=== PATIENT | female | born 1970 | race Caucasian/White ===

== ENCOUNTER 2016-08-14 21:35 | Emergency (ER) | payer OTHER ==
[~2016-08-14] VITALS: Ht 162.6 cm; Wt 64.7 kg
[~2016-08-14 21:35] MED LIST: ATV5 PO; FLUT0.0529; PRENTAB26 PO; TRAZ-120 PO
[2016-08-14 21:36] VITALS: TEMP 36.7; Ht 162.6 cm; Wt 64.7 kg
[2016-08-14] MEDS ORDERED: OMEP20CA9 PO (21:57)
[2016-08-14] MEDS ORDERED: OXYC-57 PO (22:37)
[2016-08-14] MEDS ORDERED: PERCOCET HOME PACK PO ONE (22:45)
[2016-08-14 22:53] VITALS: BP 105/84; PULSE 71; O2SAT 96
--- NOTE | 2016-08-15 03:51 | EMERGENCY ROOM VISIT NOTE ---
ED Visit Note First contact with patient: 22:04 Chief Complaint: Low back pain. History of Present Illness: Ms. Swenson is a 46-year-old white female who ambulates into the ED accompanied by her complaining of right lower back pain. Historically patient reports she has a history of bulging disks at the L4-L5 area with lumbar radiculopathy. Patient reports approximately 4 hours ago she developed an acute onset of right- sided lumbar back pain. Since that time her pain has been constant. She describes her pain as a sharp sensation. Her pain is placed over the right side of the L4-L5 area and in the left sacroiliac joint area. She rates her discomfort 9/10. Her pain is nonradiating. Her pain worsens with palpation in all movements of the back. She has not identified any alleviating factors related to the pain. She has not taken any medications for pain prior to arrival at the hospital. She denies any associated symptoms with her pain including fevers, chills, sweats, skin eruptions, skin color changes, recent direct or repetitive trauma, abdominal pain, nausea, vomiting, flank pain, urinary symptoms, hematuria, diarrhea, rectal bleeding, black/tarry stools, bowel and bladder dysfunction, genital paresthesias, lower extremity weakness/ numbness/tingling. Review of Systems: As noted above in history of present illness. All body systems were reviewed and found to be negative as noted above. Past Medical History: As previously noted, hypertension, GERD. Current Medications: Lorazepam, Prilosec. Allergies to Medications: Bupropion, fluoxetine, sertraline, sulfa, venlafaxine Social History: Patient is currently employed; she feels safe in her home environment; she denies tobacco use. Physical Examination: Vital Signs: Date Time Temp Pulse Resp B/P Pulse Ox O2 Delivery O2 Flow Rate FiO2 08/14/16 22:53 71 20 105/84 96 08/14/16 21:36 36.7 82 18 125/91 99 Room Air GENERAL: 46-year-old female in moderate distress due to pain, nontoxic-appearing , afebrile and hemodynamically stable. NEUROLOGICAL: Awake, alert and oriented to person, place and time. Answering questions appropriately and following commands. Normal gait. Good hand eye coordination. No focal motor or sensory deficits. SKIN: Warm, dry and pink. No soft tissue eruptions or trauma noted. HEENT: Atraumatic and normocephalic. BACK: No tenderness over the bony lumbar spine. Mild to moderate tenderness over the right of L4-L5 area and into the right sacroiliac joint. I do not appreciate any bony deformities, bony crepitus, swelling, step-off and there is no ecchymosis or erythema. Decreased range of motion in all movements due to pain. Negative straight leg raise test. No CVA tenderness. THORAX: Lungs sounds are clear to auscultation and equal bilaterally with symmetrical chest wall. ABDOMEN: Flat, soft and nontender. Positive bowel sounds in all quadrants. No guarding, rigidity or organomegaly. EXTREMITIES: Moves all extremities well on command and with purpose. All distal neurovascular statuses are intact and equal bilaterally. No calf tenderness or cords. 2+ patellar and Achilles deep tendon reflexes intact and equal bilaterally. 5/5 muscle strength in all movements of the hips, knees and ankles. Throughout the legs to skin was warm and pink and capillary refill is brisk. She is able to distinguish light sensations through all dermatomes of the legs. ED Course: Patient is assessed as noted above. Patient was educated about today's findings and instructed on her treatment plan ; she verbalized understanding and agreement with this plan. Clinical Impression: Acute on chronic lumbar back pain. Disposition: Patient discharged home in stable condition accompanied by her ; prior to departure she was reassessed and subjectively reported she was feeling the same. Plan: Comfort measures were discussed with the patient including rest, ice/heat, proper lifting moving techniques and she was placed on a sliding pain scale of ibuprofen, acetaminophen and Percocet. Appropriate narcotic precautions were discussed with the patient and she was entered in this state database and no red flags were found. Patient was encouraged to use proper lifting and moving techniques that we discussed. Patient was encouraged to follow-up with her primary care provider early next week for recheck. Patient was encouraged return the ED for worsening/uncontrolled pain, fevers, leg weakness/numbness/tingling, genital/rectal paresthesias, bowel and bladder dysfunction, fevers or any new/concerning symptoms.
== END 2016-08-14 22:55 | disposition home or self-care (01) ==
LOC: C.EDB 21:36 → C.EDD 22:55
DX: M54.5 Low back pain (principal); I10 Essential (primary) hypertension; K21.9 Gastro-esophageal reflux disease without esophagitis; Z79.899 Other long term (current) drug therapy